=== PATIENT | female | born 1935 | race Caucasian/White ===

== ENCOUNTER 2018-04-23 08:53 | Emergency (ER) | payer MEDICARE, MEDICAID ==
[~2018-04-23] VITALS: Ht 154.9 cm; Wt 69.1 kg
[~2018-04-23 08:53] MED LIST: ALBU18HF2 IH; COMPLEX PO; FURO-150 PO; LEVO25TA2 PO; LIOT5TAB7 PO; MECL100C PO; METF-950 PO; OXYB5TAB80 PO; ROSU10TA PO; THEO600T PO; WEL100T PO; [UNRECOGNIZED DRUG - CODE] PO; [UNRECOGNIZED DRUG - CODE] PO; [UNRECOGNIZED DRUG - OTHER] PO
[2018-04-23 08:56] VITALS: BP 131/67
== END 2018-04-23 09:47 | disposition home or self-care (01) ==
LOC: ER 08:54
DX: S20.219A Contusion of unspecified front wall of thorax, initial encounter (principal); J45.909 Unspecified asthma, uncomplicated; G89.29 Other chronic pain; Z98.890 Other specified postprocedural states; Z88.6 Allergy status to analgesic agent; Z88.5 Allergy status to narcotic agent; Z88.8 Allergy status to other drugs, medicaments and biological substances; Z79.899 Other long term (current) drug therapy; V87.7XXA Person injured in collision between other specified motor vehicles (traffic), initial encounter; Y93.89 Activity, other specified; Y92.410 Unspecified street and highway as the place of occurrence of the external cause; Y99.8 Other external cause status
CPT/HCPCS: 71045; 99283

== ENCOUNTER 2018-08-25 19:19 | Emergency (ER) | payer MEDICARE, MEDICAID ==
[~2018-08-25] VITALS: Ht 154.9 cm; Wt 68.2 kg
[~2018-08-25 19:19] MED LIST changes: -ROSU10TA PO; +ROSU10TA2 PO
[2018-08-25 20:25] LABS: BASOPHILS # (AUTO) 0.1 X10'3 (0-0.2); EOSINOPHILS # (AUTO) 0.2 X10'3 (0-0.9); EOSINOPHILS % (AUTO) 2.7 % (0-6); HEMATOCRIT 42.7 % (35.0-45.0); HEMOGLOBIN 14.3 g/dl (12.0-16.0); LYMPHOCYTES # (AUTO) 1.9 X10'3 (1.1-4.8); LYMPHOCYTES % (AUTO) 20.7 % (21-51); MEAN CORPUSCULAR HGB CONC 33.5 g/dL (33.0-36.5); MEAN CORPUSCULAR VOLUME 95.6 FL (78-98); MEAN PLATELET VOLUME 8.9 FL (7.4-10.4); MONOCYTES # (AUTO) 0.6 X10'3 (0-0.9); MONOCYTES % (AUTO) 6.3 % (2-12); NEUTROPHILS # (AUTO) 6.2 X10'3 (1.8-7.7); NEUTROPHILS % (AUTO) 69.3 % (42-75); PLATELET COUNT 288 X10'3 (140-440); RED BLOOD COUNT 4.47 X10'6 (4.20-5.60)
[2018-08-25 20:43] LABS: ALANINE AMINOTRANSFERASE 24 U/L (12-78); ALBUMIN 3.4 G/DL (3.4-5.0); ALBUMIN/GLOBULIN RATIO 0.9 (1.1-1.5); ALKALINE PHOSPHATASE 69 IU/L (46-116); ANION GAP 10 (8-16); BILIRUBIN,TOTAL 0.5 MG/DL (0.1-1.0); BLOOD UREA NITROGEN 20 MG/DL (7-18); CHLORIDE 105 MMOL/L (99-107); CREATININE 1.25 MG/DL (0.40-0.90); GLUCOSE 88 MG/DL (70-104); SODIUM 141 MMOL/L (135-145); TOTAL CARBON DIOXIDE 25.6 MMOL/L (24-32); eGFR 41 ML/MIN
[2018-08-25 20:44] LABS: ASPARTATE AMINO TRANSFERASE 31 U/L (10-37); POTASSIUM 4.1 MMOL/L (3.5-5.1)
[2018-08-25 20:49] LABS: MAGNESIUM 1.4 MG/DL (1.5-2.4)
[2018-08-25] MEDS ORDERED: heparin 25,000 UNIT/250ml bag 250 ML IV SCH (21:16)
[2018-08-25] MEDS ORDERED: heparin 10,000 units/1 ML INJ IV PRN (21:20)
[2018-08-25] MEDS ORDERED: clopidogrel 75mg tablet PO ONE (21:20)
[2018-08-25] MEDS ORDERED: heparin 10,000 units/1 ML INJ IV ONE ×2 (21:20→21:25)
[2018-08-25] MEDS ORDERED: CLOP75TA35 PO (21:35)
[2018-08-25 21:39] LABS: INR 1.4 INR; PARTIAL THROMBOPLASTIN TIME 30 SECONDS (22-32); PROTHROMBIN TIME 10.6 SECONDS (9.0-12.0)
--- NOTE | 2018-08-25 22:07 | NUR ---
PER DR CORTEZ PATIENT IS GOING HOME AMA AND IS AWARE THAT SHE HAS HAD A HEART ATTACK INDICATED BY HER ELEVATED TROPONIN; PATIENT ALSO AWARE THAT HER MAGNESIUM IS LOW WHICH IS NOT GOOD FOR HER ASTHMA
[2018-08-25 22:31] VITALS: BP 118/63
== END 2018-08-25 22:37 | disposition left against medical advice (07) ==
LOC: ER 19:19
DX: I21.4 Non-ST elevation (NSTEMI) myocardial infarction (principal); E78.00 Pure hypercholesterolemia, unspecified; J45.909 Unspecified asthma, uncomplicated; E11.9 Type 2 diabetes mellitus without complications; G89.29 Other chronic pain; M54.9 Dorsalgia, unspecified; Z88.6 Allergy status to analgesic agent; Z88.8 Allergy status to other drugs, medicaments and biological substances
CPT/HCPCS: 36415; 71045; 80053; 83735; 83880; 84484; 85025; 85610; 85730; 93005; 99284

== ENCOUNTER 2019-08-11 14:37 | Emergency (ER) | payer MEDICARE, MEDICAID ==
[~2019-08-11] VITALS: Ht 152.4 cm; Wt 69.1 kg
[~2019-08-11 14:37] MED LIST changes: +CALC300T PO; +CLOP75TA35 PO; +LIOT5TAB10 PO; -LIOT5TAB7 PO; -[UNRECOGNIZED DRUG - CODE] PO
--- NOTE | 2019-08-11 14:46 | NUR ---
Adenosine 12mg IVP given, HR 111bpm after medication given.
--- NOTE | 2019-08-11 14:46 | NUR ---
DR FRANCISCO AT BEDSIDE DURING IVP ADENOSINE 12MG. PATIENT CONVERTED TO ST PER MD, PATIENT AWAKE, ALERT, NO SIGNS OF DISTRESS NOTED, TOLERATED PROCEDURE WELL, NO SIGNS OF DISTRESS NOTED, PRESS HAND, RN X2, AND RT AT BEDSIDE.
[2019-08-11 15:49] LABS: BASOPHILS # (AUTO) 0.1 X10'3 (0-0.2); EOSINOPHILS # (AUTO) 0.2 X10'3 (0-0.9); EOSINOPHILS % (AUTO) 2.7 % (0-6); HEMATOCRIT 41.6 % (35.0-45.0); HEMOGLOBIN 14.4 g/dl (12.0-16.0); LYMPHOCYTES % (AUTO) 28.1 % (21-51); MEAN CORPUSCULAR HEMOGLOBIN 32.7 PG (27.0-31.0); MEAN CORPUSCULAR HGB CONC 34.7 g/dL (33.0-36.5); MEAN CORPUSCULAR VOLUME 94.3 FL (78-98); MEAN PLATELET VOLUME 8.6 FL (7.4-10.4); MONOCYTES # (AUTO) 0.4 X10'3 (0-0.9); MONOCYTES % (AUTO) 5.6 % (2-12); NEUTROPHILS # (AUTO) 4.5 X10'3 (1.8-7.7); NEUTROPHILS % (AUTO) 62.6 % (42-75); PLATELET COUNT 227 X10'3 (140-440); RED BLOOD COUNT 4.41 X10'6 (4.20-5.60); RED CELL DISTRIBUTION WIDTH 13.4 % (11.5-14.5); WHITE BLOOD COUNT 7.2 X10'3 (4.5-11.0)
--- NOTE | 2019-08-11 16:09 | NUR ---
Pt gave permission to give information to her son, Geovanny Howe and her daughter, Rhonda Tucker. Geovanny's phone number is [phone] (cell). Rhonda's phone number is [phone] (cell) [phone] (home).
[2019-08-11 16:13] LABS: ALANINE AMINOTRANSFERASE 16 U/L (12-78); ALBUMIN 3.4 G/DL (3.4-5.0); ALBUMIN/GLOBULIN RATIO 0.9 (1.1-1.5); ALKALINE PHOSPHATASE 74 IU/L (46-116); ANION GAP 9 (8-16); ASPARTATE AMINO TRANSFERASE 21 U/L (10-37); BILIRUBIN,TOTAL 0.4 MG/DL (0.1-1.0); BLOOD UREA NITROGEN 21 MG/DL (7-18); BUN/CREATININE RATIO 18.4 (6.6-38.0); CHLORIDE 106 MMOL/L (99-107); CREATININE 1.14 MG/DL (0.40-0.90); GLUCOSE 82 MG/DL (70-104); SODIUM 144 MMOL/L (135-145); TOTAL CARBON DIOXIDE 28.8 MMOL/L (24-32); TOTAL PROTEIN 7.2 G/DL (6.4-8.2); eGFR 45 ML/MIN
[2019-08-11 16:19] LABS: MAGNESIUM 1.6 MG/DL (1.5-2.4)
[2019-08-11 18:18] VITALS: BP 92/59
== END 2019-08-11 18:19 | disposition home or self-care (01) ==
LOC: ER 14:37
DX: I47.1 Supraventricular tachycardia (principal); E78.00 Pure hypercholesterolemia, unspecified; J45.909 Unspecified asthma, uncomplicated; E11.9 Type 2 diabetes mellitus without complications; G89.29 Other chronic pain; Z98.890 Other specified postprocedural states; Z60.2 Problems related to living alone; Z88.5 Allergy status to narcotic agent; Z88.8 Allergy status to other drugs, medicaments and biological substances; Z79.899 Other long term (current) drug therapy
CPT/HCPCS: 36415; 71045; 80053; 83735; 83880; 84443; 84484; 85025; 93005; 99285

== ENCOUNTER 2020-01-02 03:24 | Observation (INO) | payer MEDICARE, MEDICAID ==
[~2020-01-02] VITALS: Ht 152.4 cm; Wt 65.5 kg
[2020-01-02 03:48] LABS: BASOPHILS # (AUTO) 0.1 X10'3 (0-0.2); BASOPHILS % (AUTO) 0.9 % (0-1); EOSINOPHILS # (AUTO) 0.2 X10'3 (0-0.9); EOSINOPHILS % (AUTO) 2.6 % (0-6); HEMATOCRIT 42.8 % (35.0-45.0); HEMOGLOBIN 14.1 g/dl (12.0-16.0); LYMPHOCYTES # (AUTO) 3.5 X10'3 (1.1-4.8); LYMPHOCYTES % (AUTO) 39.7 % (21-51); MEAN CORPUSCULAR HEMOGLOBIN 31.2 PG (27.0-31.0); MEAN CORPUSCULAR HGB CONC 32.9 g/dL (33.0-36.5); MEAN CORPUSCULAR VOLUME 94.8 FL (78-98); MEAN PLATELET VOLUME 8.9 FL (7.4-10.4); MONOCYTES # (AUTO) 0.4 X10'3 (0-0.9); NEUTROPHILS # (AUTO) 4.7 X10'3 (1.8-7.7); NEUTROPHILS % (AUTO) 52.8 % (42-75); PLATELET COUNT 224 X10'3 (140-440); RED BLOOD COUNT 4.52 X10'6 (4.20-5.60); RED CELL DISTRIBUTION WIDTH 12.9 % (11.5-14.5); WHITE BLOOD COUNT 8.8 X10'3 (4.5-11.0)
[2020-01-02 04:00] LABS: ALANINE AMINOTRANSFERASE 14 U/L (12-78); ALBUMIN 3.3 G/DL (3.4-5.0); ALBUMIN/GLOBULIN RATIO 0.8 (1.1-1.5); ALKALINE PHOSPHATASE 75 IU/L (46-116); ANION GAP 13 (8-16); ASPARTATE AMINO TRANSFERASE 17 U/L (10-37); BILIRUBIN,TOTAL 0.5 MG/DL (0.1-1.0); BLOOD UREA NITROGEN 17 MG/DL (7-18); BUN/CREATININE RATIO 12.1 (6.6-38.0); CALCIUM 9.3 MG/DL (8.5-10.1); CHLORIDE 104 MMOL/L (99-107); GLUCOSE 154 MG/DL (70-104); POTASSIUM 3.7 MMOL/L (3.5-5.1); SODIUM 139 MMOL/L (135-145); TOTAL PROTEIN 7.3 G/DL (6.4-8.2); eGFR 36 ML/MIN
[2020-01-02 04:07] LABS: MAGNESIUM 1.5 MG/DL (1.5-2.4); PHOSPHORUS 3.6 MG/DL (2.3-4.5)
[2020-01-02] MEDS ORDERED: potassium CL 10mEq/100ml bag 100 ML IV PRN ×2 (05:25)
[2020-01-02] MEDS ORDERED: potassium Cl 20 mEq SR tablet PO PRN ×2 (05:25)
[2020-01-02] MEDS ORDERED: magnesium Cl slow-release 64mg tablet PO PRN (05:25)
[2020-01-02] MEDS ORDERED: HYDROcodone/acetaminophen 5mg/325mg tablet PO PRN (05:25)
[2020-01-02] MEDS ORDERED: magnesium hydroxide 30ml (MOM) UD suspension PO PRN (05:25)
[2020-01-02] MEDS ORDERED: magnesium 2GM in 50ml NS 50 ML IV PRN (05:25)
[2020-01-02] MEDS ORDERED: acetaminophen 325mg tablet PO PRN (05:25)
[2020-01-02] MEDS ORDERED: ondansetron/PF 4mg/2ml inj IV PRN (05:25)
[2020-01-02] MEDS ORDERED: mag hydrox/Alum hydrox/simeth 30ml oral suspension PO PRN (05:25)
[2020-01-02] MEDS ORDERED: magnesium 4gm in 100ml NS 100 ML IV PRN (05:25)
--- NOTE | 2020-01-02 07:01 | NUR ---
Patient in room ED 5. I have received report from Michele ED RN. and had the opportunity to ask questions, awaiting patient's arrival to the unit to room 3013A.
[2020-01-02] MEDS: K and/or MAG REPLACEMENT MC SCH ×2 (08:00→20:00)
--- NOTE | 2020-01-02 10:00 | NUR ---
PAGER ID: [phone] MESSAGE: Re: Kia Howe. 3013A. Pt. 2nd troponin .14. Patient remains NPO. Do you want to order a Stress Test? Jeny Herrmann, U #[id number]
--- NOTE | 2020-01-02 10:56 | NUR ---
PAGER ID: [phone] MESSAGE: Re: Kia Duckworth. [id number]. patient received adenosine yesterday. Giving me a contraindication upon ordering Stress test. Thank you. Jeny Herrmann #[id number]
[2020-01-02] MEDS ORDERED: NITR0.4T51 SL (12:48)
--- NOTE | 2020-01-02 13:43 | NUR ---
PAGER ID: [phone] MESSAGE: Re: [id number]. Kia Duckworth. Pt. is not wanting to AMA after discussing plan of care. patient willing to stay. Jeny Herrmann #[id number]
[2020-01-02] MEDS ORDERED: methylPREDNISolone sod succ/PF 40mg inj. IV ONE (15:30)
[2020-01-02 18:00] VITALS: BP 139/69
--- NOTE | 2020-01-02 18:18 | NUR ---
Problems reprioritized. Patient report given, questions answered & plan of care reviewed with SRIKANTH Odom.
[2020-01-02 22:00] VITALS: BP 120/67
[2020-01-03 02:00] VITALS: BP 118/58
--- NOTE | 2020-01-03 04:02 | NUR ---
Paged RT Pt in 5683O Ellen Howe is wheezing, and she needs a breathing tx. Thanks! Ilene x [phone]
[2020-01-03] MEDS ORDERED: LORazepam 2 mg/ml vial IV PRN (04:35)
--- NOTE | 2020-01-03 04:35 | NUR ---
PAGER ID: [phone] MESSAGE: This is SRIKANTH Odom from [facility] [place]. Pt in [address] Dempsey 84 [address] Dx: CP; Hx : HTN, SVT; is anxious. Can we get an order for Ativan? Thanks!
[2020-01-03 06:00] VITALS: BP 128/76
[2020-01-03 06:02] LABS: BASOPHILS % (AUTO) 0.2 % (0-1); EOSINOPHILS % (AUTO) 0.1 % (0-6); HEMATOCRIT 41.1 % (35.0-45.0); HEMOGLOBIN 13.7 g/dl (12.0-16.0); LYMPHOCYTES # (AUTO) 1.1 X10'3 (1.1-4.8); LYMPHOCYTES % (AUTO) 23.6 % (21-51); MEAN CORPUSCULAR HEMOGLOBIN 31.1 PG (27.0-31.0); MEAN CORPUSCULAR HGB CONC 33.3 g/dL (33.0-36.5); MEAN CORPUSCULAR VOLUME 93.5 FL (78-98); MONOCYTES # (AUTO) 0.1 X10'3 (0-0.9); MONOCYTES % (AUTO) 2.5 % (2-12); NEUTROPHILS # (AUTO) 3.5 X10'3 (1.8-7.7); NEUTROPHILS % (AUTO) 73.6 % (42-75); PLATELET COUNT 218 X10'3 (140-440); RED BLOOD COUNT 4.39 X10'6 (4.20-5.60); RED CELL DISTRIBUTION WIDTH 12.8 % (11.5-14.5); WHITE BLOOD COUNT 4.7 X10'3 (4.5-11.0)
[2020-01-03 06:23] LABS: ALANINE AMINOTRANSFERASE 14 U/L (12-78); ALBUMIN/GLOBULIN RATIO 0.8 (1.1-1.5); ALKALINE PHOSPHATASE 66 IU/L (46-116); ANION GAP 10 (8-16); ASPARTATE AMINO TRANSFERASE 16 U/L (10-37); BILIRUBIN,TOTAL 0.3 MG/DL (0.1-1.0); BLOOD UREA NITROGEN 23 MG/DL (7-18); BUN/CREATININE RATIO 20.9 (6.6-38.0); CALCIUM 9.2 MG/DL (8.5-10.1); CHLORIDE 105 MMOL/L (99-107); GLUCOSE 134 MG/DL (70-104); MAGNESIUM 1.7 MG/DL (1.5-2.4); SODIUM 139 MMOL/L (135-145); TOTAL CARBON DIOXIDE 24.2 MMOL/L (24-32); TOTAL PROTEIN 6.9 G/DL (6.4-8.2); eGFR 47 ML/MIN
--- NOTE | 2020-01-03 06:43 | NUR ---
Problems reprioritized. Patient report given, questions answered & plan of care reviewed with SRIKANTH Jarquin.
[2020-01-03] MEDS: K and/or MAG REPLACEMENT MC SCH (07:10)
--- NOTE | 2020-01-03 08:30 | NUR ---
Received report and assumed care of patient.Patient awake and oriented, assessment completed. coarse expiratory wheeze throughout posterior lobes. Addendum: 01/03/20 at 0936 by Kamille Sharma RN Amended: Links added.
[2020-01-03] MEDS ORDERED: LEVA15HF4 INH (10:26)
[2020-01-03 11:57] VITALS: BP 114/73
--- NOTE | 2020-01-06 15:24 | NUR ---
Case Management DC follow up: Spoke with pt via telephone. Status post: cp reports: "feels better, new inhaler works better". Denies: acute/continuous cp, emergent SOB, acute general pain, resp distress, N/V, vertigo, sycope episodes, ARGUELLES blurry vision, abd pain/distension, diarrhea, constipation, bladder pain, dysuria, polyuria, hematuria, retention, urgency, unexplained bleeding/bruising,fever. Verbalizes understanding of s/s that would warrant 9-11/ER visit for evaluation. Verbalizes understanding of Rx: Levalbuterol tartrate, why prescribed, Pt states she only takes a few of medications, synthroid being one of them. Most medicines listed pt stopped months ago, "I don't need" denies ase r/t polypharmacy. Acknowledges need to schedule/keep follow up appts w/PCP. pt has not seen PCP, Murray Rosas, "in years". given the name Kayce Beck, pt will call to see if can establish. [facility] called pt, pt declines services, "I don't need". pt will call for follow up w/glass silverer. Verbalizes compliance w/DC aftercare. Needs met, questions answered at DC, no further questions r/t post status DC at this time.
== END 2020-01-03 15:27 | disposition home health service (06) ==
LOC: ER 03:24 → ED HOLD 05:22 → PCU 3S 07:22
PROVIDERS: ADMIT Family Medicine; ATTEND Internal Medicine
DX: R07.89 Other chest pain (principal); I47.1 Supraventricular tachycardia; I10 Essential (primary) hypertension; J45.909 Unspecified asthma, uncomplicated; I95.9 Hypotension, unspecified; R42 Dizziness and giddiness; E78.5 Hyperlipidemia, unspecified; E78.00 Pure hypercholesterolemia, unspecified; E11.9 Type 2 diabetes mellitus without complications; G89.29 Other chronic pain; M54.2 Cervicalgia; H93.19 Tinnitus, unspecified ear; Z79.84 Long term (current) use of oral hypoglycemic drugs; Z79.899 Other long term (current) drug therapy; Z98.82 Breast implant status; Z88.5 Allergy status to narcotic agent; Z88.6 Allergy status to analgesic agent; Z88.8 Allergy status to other drugs, medicaments and biological substances; Z91.048 Other nonmedicinal substance allergy status
CPT/HCPCS: 36415; 71045; 80053; 82948; 83735; 83880; 84100; 84484; 85025; 87081; 93005; 96374; 96375; 99285; G0378; J2060; J2920

== ENCOUNTER 2021-07-18 19:23 | Emergency (ER) | payer MEDICARE, MEDICAID ==
[~2021-07-18] VITALS: Ht 152.4 cm; Wt 67.0 kg
[~2021-07-18 19:23] MED LIST changes: -ALBU18HF2 IH; -CALC300T PO; +CLOP75TA34 PO; -CLOP75TA35 PO; +LEVA15HF4 INH; +METF-1203 PO; -METF-950 PO; +NITR0.4T51 SL; -THEO600T PO; +THEO600T5 PO; +[UNRECOGNIZED DRUG - CODE] PO
[2021-07-18] MEDS ORDERED: ipratropium/albuterol 3ml nebule NEB ONE (19:30)
[2021-07-18 20:04] LABS: BASOPHILS # (AUTO) 0.1 X10'3 (0-0.2); BASOPHILS % (AUTO) 1.1 % (0-1); EOSINOPHILS # (AUTO) 0.2 X10'3 (0-0.9); EOSINOPHILS % (AUTO) 2.8 % (0-6); HEMATOCRIT 39.6 % (35.0-45.0); HEMOGLOBIN 13.2 g/dl (12.0-16.0); LYMPHOCYTES % (AUTO) 49.1 % (21-51); MEAN CORPUSCULAR HEMOGLOBIN 32.1 PG (27.0-31.0); MEAN CORPUSCULAR HGB CONC 33.3 g/dL (33.0-36.5); MEAN CORPUSCULAR VOLUME 96.2 FL (78-98); MEAN PLATELET VOLUME 9.8 FL (7.4-10.4); MONOCYTES # (AUTO) 0.4 X10'3 (0-0.9); MONOCYTES % (AUTO) 6.8 % (2-12); NEUTROPHILS # (AUTO) 2.5 X10'3 (1.8-7.7); NEUTROPHILS % (AUTO) 40.2 % (42-75); PLATELET COUNT 177 X10'3 (140-440); RED BLOOD COUNT 4.12 X10'6 (4.20-5.60); RED CELL DISTRIBUTION WIDTH 13.4 % (11.5-14.5); WHITE BLOOD COUNT 6.1 X10'3 (4.5-11.0)
[2021-07-18 20:27] LABS: ALANINE AMINOTRANSFERASE 24 U/L (12-78); ALBUMIN 3.4 G/DL (3.4-5.0); ALBUMIN/GLOBULIN RATIO 1.1 (1.1-1.5); ALKALINE PHOSPHATASE 59 IU/L (46-116); ANION GAP 13 (8-16); ASPARTATE AMINO TRANSFERASE 24 U/L (10-37); BILIRUBIN,TOTAL 0.2 MG/DL (0.1-1.0); BLOOD UREA NITROGEN 25 MG/DL (7-18); BUN/CREATININE RATIO 29.4 (6.6-38.0); CALCIUM 8.9 MG/DL (8.5-10.1); CHLORIDE 107 MMOL/L (99-107); CREATININE 0.85 MG/DL (0.40-0.90); GLUCOSE 110 MG/DL (70-104); POTASSIUM 3.8 MMOL/L (3.5-5.1); SODIUM 144 MMOL/L (135-145); TOTAL CARBON DIOXIDE 23.6 MMOL/L (24-32); TOTAL PROTEIN 6.5 G/DL (6.4-8.2); eGFR 63 ML/MIN
[2021-07-18 22:19] VITALS: BP 100/65
== END 2021-07-18 22:21 | disposition home or self-care (01) ==
LOC: ER 19:23
DX: T78.49XA Other allergy, initial encounter (principal); R42 Dizziness and giddiness; J45.909 Unspecified asthma, uncomplicated; E78.00 Pure hypercholesterolemia, unspecified; E11.9 Type 2 diabetes mellitus without complications; G89.29 Other chronic pain; Z98.82 Breast implant status; Z99.81 Dependence on supplemental oxygen; Z79.899 Other long term (current) drug therapy; Z88.6 Allergy status to analgesic agent; Z88.8 Allergy status to other drugs, medicaments and biological substances; Z91.048 Other nonmedicinal substance allergy status; X58.XXXA Exposure to other specified factors, initial encounter
CPT/HCPCS: 36415; 71045; 80053; 83880; 85025; 93005; 94640; 94760; 99285